=== PATIENT | female | born 1935 | race Caucasian/White ===

== ENCOUNTER → 2020-06-05 09:06 | Outpatient (CLI) | payer MEDICARE, OTHER ==
--- NOTE | 2020-06-06 08:47 | EC ---
PATIENT:BEATRIZ KELLY DATE OF SERVICE: 06/05/20 SEX: F MEDICAL RECORD: [id number] DATE OF : 37 LOCATION:[facility] AGE OF PATIENT: 84 ADMISSION DATE: 06/05/20 REFERRING PHYSICIAN: INTERPRETING PHYSICIAN: MICHAEL ENGLISH MD ECHOCARDIOGRAM REPORT ECHO CHARGES 4 ECHO COMPLETE Date: 06/05/20 CLINICAL DIAGNOSIS: HEART MURMUR ECHOCARDIOGRAPHIC MEASUREMENTS (adult normal given) AC root (d.<3.7cm) 3.2 cm LV Septum d (<1.2 cm> 1.2 cm Valve Excursion 1.4 cm LV Septum (systole) 1.3 cm Left Atria (s.<4.0cm> 3.5 cm LVPW d(<1.2cm) 1.2 cm RV (d.<2.3cm) 3.5 cm LVPW (sytole) 1.5 cm LV diastole(<5.6CM) 4.1 cm MV E-F(>70mm/sec) cm LV systole 2.5 cm LVOT Diameter 1.8 cm MV exc.(>10mm) 1.9 cm Est.ejection fraction (50-75%) % DOPPLER: LVIT cm/sec A 99.0 cm/sec E 75.0 cm/sec LA cm/sec RVSP 33 mmHg LVOT 96 cm/sec AOP1/2T 557 m/s Asc. Ao 112 cm/sec RVOT cm/sec RA cm/sec PA cm/sec AV Gradient Peak 5.03 mmHg AV Mean 2.53 mmHg AV Area 2.1 cm MV Gradient Peak 4.57 mmHg MV Mean 1.69 mmHg MV Area cm COMMENTS: Coating Manager: 2 TARA RILEY Desulphuring Operator: 3 Dr. King TAPE# PACS Pericardial Effusion N DATE OF SERVICE: Adequate 2D, color-flow imaging, spectral Doppler, and M-Mode No LVH. LV internal dimension is normal. Wall motion is normal. EF is greater than or equal to 55%. Aortic valve is sclerotic. No evidence of stenosis by Doppler interrogation. There is mild AI with color-flow imaging as well. Left atrium is normal. Mitral valve shows no prolapse. Trace MR. Right-sided chambers are grossly normal. Mild TR. ECHOCARDIOGRAM REPORT [id number] BEATRIZ KELLY TRANSINT:[id number] Voice Confirmation ID: [id number] DOCUMENT ID: [id number] MICHAEL ENGLISH MD at 0847 CC: [id number] DICTATION DATE: 06/05/20 1336 CORE LAYING MACHINE OPERATOR: 06/05/20 1633 DEP CLI 06/05/20 [place] [id number] [place] [id number]
== END | disposition home or self-care (01) ==
LOC: D.HCCECHO 09:06
PROVIDERS: ATTEND Internal Medicine Interventional Cardiology
DX: R09.89 Other specified symptoms and signs involving the circulatory and respiratory systems (principal); R01.1 Cardiac murmur, unspecified

== ENCOUNTER → 2021-04-01 10:02 | Outpatient (CLI) | payer MEDICARE ==
[2021-04-04 03:09] LABS: RMSF IGM 0.88 index (0.00-0.89)
== END | disposition home or self-care (01) ==
LOC: D.LAB 10:02
PROVIDERS: ATTEND Nurse Practitioner Family
DX: A77.40 Ehrlichiosis, unspecified (principal); A69.20 Lyme disease, unspecified; D80.3 Selective deficiency of immunoglobulin G [IgG] subclasses; A21.9 Tularemia, unspecified; A79.9 Rickettsiosis, unspecified